=== PATIENT | female | born 1940 | race Caucasian/White ===

== ENCOUNTER 2016-12-27 01:57 | Inpatient (IN) ==
[2016-12-21 11:10] LABS: URINE MICRO REVIEW NEEDED? NO; URINE SOURCE CLEAN CATCH
[2016-12-21 11:10] LABS: MANUAL DIFF NEEDED? NO
[2016-12-21 11:14] LABS: BASO% 0.3 % (0.0-0.8); EOS# 0.12 X1000 (0.0-0.7); EOS% 1.8 % (0.0-10.0); HEMATOCRIT 43.7 % (37.0-47.0); LYMPH# 1.56 X1000 (1.2-3.4); LYMPH% 23.6 % (20.5-51.1); MCH 30.9 PG (27-31); MCHC 34.3 g/dL (33-37); MCV 90.1 FL (81-99); MONO# 0.49 X1000 (0.11-0.59); MONO% 7.4 % (1.7-9.3); MPV 9.3 FL (7.4-10.4); NEUT% 66.9 % (42.2-75.2); PLT 231 X1000 (130-400); RBC 4.85 XMIL (4.2-5.4)
[2016-12-21 11:18] LABS: BILIRUBIN URINE NEGATIVE (NEGATIVE); BLOOD URINE NEGATIVE (NEGATIVE); COLOR YELLOW; GLUCOSE URINE NEGATIVE (NEGATIVE); LEUKOCYTES URINE NEGATIVE (NEGATIVE); NITRITE URINE NEGATIVE (NEGATIVE); PH URINE 6.5; PROTEIN URINE NEGATIVE (NEGATIVE); SP GRAVITY URINE 1.016; TURBIDITY URINE CLEAR (CLEAR); UROBILINOGEN URINE NORMAL (NORMAL)
[2016-12-21 11:21] LABS: UR EPITHELIAL CELLS <10 /HPF (<10); URINE BACTERIA NEGATIVE /HPF; URINE RBC <10 /HPF (<10); URINE WBC <10 /HPF (<10)
[2016-12-21 11:28] LABS: INR 0.96; PROTIME 10.1 Seconds (9.2-11.7); PTT 26.2 Seconds (22.0-36.0)
[2016-12-21 11:41] LABS: AGAP 10; BUN 16 mg/dL (8-22); CALCIUM 9.4 mg/dL (8.8-10.2); CHLORIDE 103 mmol/L (98-107); COSMO 285; POTASSIUM 4.5 mmol/L (3.5-5.1); SODIUM 142 mmol/L (136-145); TCO2 29 mmol/L (25-35)
--- NOTE | 2016-12-21 11:51 | EKG Report ---
Test Performed on : 12/21/2016 10:24:56 AM Test Reason : ORDER Blood Pressure : / mmHG Vent. Rate : 066 BPM Atrial Rate : 066 BPM P-R Int : 140 ms QRS Dur : 074 ms QT Int : 426 ms P-R-T Axes : 064 022 057 degrees QTc Int : 446 ms Normal sinus rhythm. Normal ECG No previous ECGs available Confirmed by Robbin RODRIGUEZ, Esequiel Bhatt ([id number]) on 12/22/2016 11:55:22 AM
[2016-12-27] MEDS ORDERED: REGLAN ONE (08:03)
[2016-12-27] MEDS ORDERED: CELEBREX ONE (08:03)
[2016-12-27] MEDS ORDERED: LYRICA ONE (08:03)
[2016-12-27] MEDS ORDERED: KEFZOL 1 GM/D5W 1 GM/50 ML IVPB ONE (08:03)
[2016-12-27] MEDS ORDERED: COLACE ONE (08:03)
[2016-12-27] MEDS ORDERED: PEPCID ONE (08:03)
[2016-12-27] MEDS ORDERED: LR 1,000 ML ONE (08:04)
[2016-12-27] MEDS ORDERED: XYLOCAINE-MPF 2% ONE (09:35)
[2016-12-27] MEDS ORDERED: DIPRIVAN 1% ONE (09:35)
[2016-12-27] MEDS ORDERED: ROBINUL ONE (09:35)
[2016-12-27] MEDS ORDERED: VERSED ONE (09:36)
[2016-12-27] MEDS ORDERED: FENTANYL ONE (09:37)
[2016-12-27] MEDS ORDERED: DURAMORPH ONE (09:42)
[2016-12-27] MEDS ORDERED: MARCAINE 0.25% PF ONE (09:42)
[2016-12-27] MEDS ORDERED: TORADOL ONE (09:42)
[2016-12-27] MEDS ORDERED: NEOSPORIN G.U. IRRIGANT ONE (09:43)
[2016-12-27] MEDS ORDERED: VANCOMYCIN ONE (09:43)
[2016-12-27] MEDS ORDERED: CYKLOKAPRON 1,000 MG/NS 1,000 MG/100 ML IVPB ONE ×2 (09:43→09:44)
[2016-12-27] MEDS ORDERED: SODIUM CHLORIDE 0.9% ONE (09:43)
[2016-12-27] MEDS ORDERED: EXPAREL 1.3% ONE (09:43)
[2016-12-27] MEDS ORDERED: DECADRON ONE (10:30)
[2016-12-27] MEDS ORDERED: OFIRMEV 1000 MG/ISOTONIC SOLN 1,000 MG/100 ML BOTTLE ONE (10:30)
[2016-12-27] MEDS ORDERED: NEO-SYNEPHRINE ONE (10:47)
[2016-12-27 11:04] LABS: URINE MICRO REVIEW NEEDED? NO; URINE SOURCE CATH
[2016-12-27 11:10] LABS: BILIRUBIN URINE NEGATIVE (NEGATIVE); BLOOD URINE NEGATIVE (NEGATIVE); COLOR YELLOW; GLUCOSE URINE NEGATIVE (NEGATIVE); LEUKOCYTES URINE NEGATIVE (NEGATIVE); NITRITE URINE NEGATIVE (NEGATIVE); PH URINE 6.5; PROTEIN URINE NEGATIVE (NEGATIVE); TURBIDITY URINE CLEAR (CLEAR); UR EPITHELIAL CELLS <10 /HPF (<10); URINE BACTERIA NEGATIVE /HPF; URINE RBC <10 /HPF (<10); URINE WBC <10 /HPF (<10); UROBILINOGEN URINE NORMAL (NORMAL)
[2016-12-27] MEDS ORDERED: NS 1,000 ML ONE (12:38)
--- NOTE | 2016-12-27 12:44 | Diag Imaging Result Doc PS360 ---
KNEE 1-2 VIEWS-RIGHT - 12/27/2016 INDICATION: r tka TECHNIQUE: Two views COMPARISON: 09/20/2016 FINDINGS: There has been right total knee arthroplasty. There is also been patellar resurfacing. Alignment is anatomic. No hardware fracture or loosening. IMPRESSION: No complication. Electronically signed by Huey Alvarado 12/27/2016 12:41 PM
[2016-12-27] MEDS ORDERED: MORPHINE IV PRN (14:01)
[2016-12-27] MEDS ORDERED: MILK OF MAGNESIA PO PRN (14:01)
[2016-12-27] MEDS ORDERED: ZOFRAN PO PRN (14:01)
[2016-12-27] MEDS: ZOFRAN IV PRN (14:19)
[2016-12-27] MEDS: CALTRATE 600 + D PO SCH (14:20)
[2016-12-27] MEDS: VITAMIN B-12 PO SCH (14:20)
[2016-12-27] MEDS: PATIENT'S OWN MED PO SCH (14:20)
[2016-12-27] MEDS: VITAMIN B-1 PO SCH (14:20)
[2016-12-27] MEDS: ESTRACE PO SCH (14:20)
[2016-12-27] MEDS: NS 1,000 ML IV SCH (14:27)
[2016-12-27] MEDS: TYLENOL PO SCH (17:19)
[2016-12-27] MEDS ORDERED: KEFZOL 1 GM/D5W 1 GM/50 ML IVPB IV SCH (18:00)
[2016-12-27] MEDS ORDERED: KEFZOL 1 GM/D5W 1 GM/50 ML IVPB IV ONE (19:49)
[2016-12-27] MEDS: PERIDEX MT SCH (20:29)
[2016-12-27] MEDS: COLACE PO SCH (20:29)
[2016-12-27] MEDS: PRAVACHOL PO SCH (20:29)
[2016-12-28] MEDS: TYLENOL PO SCH ×5 (00:04→22:58)
[2016-12-28] MEDS: NS 1,000 ML IV SCH ×3 (00:05→15:44)
[2016-12-28] MEDS ORDERED: KEFZOL 2 GM/D5W 2 GM/50 ML IVPB IV ONE (04:00)
[2016-12-28 05:36] LABS: HEMOGLOBIN 12.2 g/dL (12.0-16.0)
[2016-12-28 05:48] LABS: AGAP 8; BUN 11 mg/dL (8-22); CHLORIDE 110 mmol/L (98-107); COSMO 287; POTASSIUM 4.1 mmol/L (3.5-5.1); SODIUM 143 mmol/L (136-145); TCO2 25 mmol/L (25-35)
[2016-12-28] MEDS: XARELTO PO SCH (05:58)
[2016-12-28] MEDS: CALTRATE 600 + D PO SCH (11:00)
[2016-12-28] MEDS: OXY IR PO PRN ×3 (11:01→19:01)
[2016-12-28] MEDS: PEPCID PO SCH (11:02)
[2016-12-28] MEDS: COLACE PO SCH ×2 (11:02→22:58)
[2016-12-28] MEDS: ESTRACE PO SCH (11:02)
[2016-12-28] MEDS: VITAMIN B-12 PO SCH (11:02)
[2016-12-28] MEDS: PATIENT'S OWN MED PO SCH (11:03)
[2016-12-28] MEDS: VITAMIN B-1 PO SCH (11:03)
[2016-12-28] MEDS: PERIDEX MT SCH ×2 (11:03→22:58)
[2016-12-28] MEDS: ZOFRAN IV PRN (22:58)
[2016-12-28] MEDS: PRAVACHOL PO SCH (22:58)
[2016-12-29] MEDS: OXY IR PO PRN ×5 (03:09→21:36)
[2016-12-29] MEDS: TYLENOL PO SCH ×3 (05:32→17:22)
[2016-12-29] MEDS: XARELTO PO SCH (05:32)
[2016-12-29 06:11] LABS: HEMATOCRIT 33.4 % (37.0-47.0); HEMOGLOBIN 11.4 g/dL (12.0-16.0)
[2016-12-29] MEDS: PEPCID PO SCH ×2 (07:57→11:26)
[2016-12-29] MEDS: COLACE PO SCH ×3 (07:58→21:36)
[2016-12-29] MEDS: VITAMIN B-1 PO SCH ×2 (07:58→11:26)
[2016-12-29] MEDS: PERIDEX MT SCH ×2 (07:59→21:37)
[2016-12-29] MEDS: VITAMIN B-12 PO SCH (07:59)
[2016-12-29] MEDS: ESTRACE PO SCH (07:59)
[2016-12-29] MEDS: CALTRATE 600 + D PO SCH (07:59)
[2016-12-29] MEDS: PATIENT'S OWN MED PO SCH (08:02)
--- NOTE | 2016-12-29 12:39 | Diag Imaging Result Doc PS360 ---
EXAM: CHEST-PORTABLE HISTORY: for rehab TECHNIQUE: Portable upright COMPARISON: 03/05/2015 FINDINGS: The lungs are well expanded. The heart is not enlarged. The vessels are not distended. No pneumonia. No pleural effusions identified. IMPRESSION: Negative chest. Electronically signed by Jerry Raza 12/29/2016 12:37 PM
[2016-12-29] MEDS: PRAVACHOL PO SCH (21:37)
[2016-12-30] MEDS: OXY IR PO PRN ×2 (01:53→08:40)
[2016-12-30 05:35] LABS: HEMATOCRIT 32.5 % (37.0-47.0)
[2016-12-30] MEDS: TYLENOL PO SCH (05:54)
[2016-12-30] MEDS: XARELTO PO SCH (05:55)
[2016-12-30 07:47] VITALS: BP 131/69
[2016-12-30] MEDS: VITAMIN B-12 PO SCH (08:41)
[2016-12-30] MEDS: ESTRACE PO SCH (08:41)
[2016-12-30] MEDS: CALTRATE 600 + D PO SCH (08:41)
[2016-12-30] MEDS: PEPCID PO SCH (08:41)
[2016-12-30] MEDS: VITAMIN B-1 PO SCH (08:41)
[2016-12-30] MEDS: PERIDEX MT SCH (08:41)
[2016-12-30] MEDS: COLACE PO SCH (08:41)
[2016-12-30] MEDS: PATIENT'S OWN MED PO SCH (08:42)
== END 2016-12-30 08:57 ==
LOC: SURHOLD 01:57 → 4N 10:41
PROVIDERS: ADMIT Orthopaedic Surgery Adult Reconstructive Orthopaedic Surgery; ATTEND Orthopaedic Surgery Adult Reconstructive Orthopaedic Surgery

== ENCOUNTER 2018-12-19 18:21 | Inpatient (IN) ==
--- NOTE | 2018-12-19 20:44 | Diag Imaging Result Doc PS360 ---
EXAM: CHEST-1 VIEW - 12/19/2018 HISTORY: sepsis protocol TECHNIQUE: One view chest COMPARISON: 12/29/2016 portable chest FINDINGS: Heart size is normal. The lungs appear clear. There is a tiny left pleural effusion. There is no pneumothorax identified. IMPRESSION: Tiny left pleural effusion. No evidence of pneumonia. Electronically signed by Demetrio Meier 12/19/2018 8:42 PM
--- NOTE | 2018-12-19 22:48 | PROVIDER DOCUMENTATION ---
HPI-General Adult - General Chief Complaint: Fever Stated Complaint: FEVER Time Seen by Provider: 12/19/18 22:24 Source: patient, family Allergies/Adverse Reactions: Patient Allergies Allergy/AdvReac Type Severity Reaction Status Date / Time ziprasidone HCl * AdvReac Unknown Verified 09/29/17 22:32 [From [facility]] ziprasidone mesylate * AdvReac Unknown Verified 09/29/17 22:32 [From [facility]] Home Medications: Home Medication List Medication Instructions Recorded Confirmed Last Taken Type Pravastatin Sodium 20 mg PO HS 09/20/16 09/29/17 09/28/17 22:00 History Calcium Carb, Citrate/Vit D3 1 each PO DAILY 12/21/16 09/29/17 09/29/17 08:00 History [Calcium + D3 ER Tablet] Cyanocobalamin [Vitamin B-12] 500 microgm PO DAILY 12/21/16 09/29/17 09/29/17 08:00 History Potassium Gluconate 99 mg PO DAILY 12/21/16 09/29/17 2 Days Ago History ~12/25/16 Thiamine HCl [Vitamin B-1] 250 mg PO DAILY 12/21/16 09/29/17 2 Days Ago History ~12/25/16 Docusate Sodium [Colace] 100 mg PO BID capsule 10/02/17 Unknown Rx Hydrocodone/Acetaminophen [[place] 10 mg PO BID PRN PRN 10/02/17 10/02/17 Unknown History 10-325 Tablet] Levofloxacin [Levaquin] 500 mg PO DAILY #15 tab 10/02/17 Unknown Rx - History of Present Illness -Gen Adult Nature of Presenting Problems: This is a 77yo female who presents with CC of fever and back pain. The patient reports that she has fever and muscle aches for the past 1 week. The patient reports that last week sunday she noted fever and chills and was treated at the office for muscle aches. On the patient continue to have fever and ach es and went to the urgent care and was given abx and steroids. She is not sure what the treatment was for, but was told that she did not have a UTI or the flu. The patient continued to have fevers and aches and came to the ED. The patient denies dysuria, hematuria, and chest pain. The patient denies any shortness of breath, no rash, no weakness, no speach issues, and no numbness. The patient denies abdominal pain or vomiting, but does report some nausea. The patient denies hx of blood clots, cancer, or recent travel. Location of Pain/Injury: reports: back Onset/Duration: reports: last week Timing: reports: still present, intermittent Context/Activities at Onset: denies: out of country travel Modifying Factors: improves with: other (some improvement with abx) Associated Symptoms: reports: back/neck pain, nausea, other (abdominal pain) Review of Systems - Adult - REVIEW OF SYSTEMS - ADULT Constitutional: reports: fever Eyes: denies: blurred vision Ears, Nose, Mouth & Throat: reports: no symptoms reported. denies: throat pain Cardiovascular: reports: no symptoms reported. denies: chest pain Respiratory: reports: no symptoms reported. denies: shortness of breath Gastrointestinal: reports: abdominal pain, nausea. denies: diarrhea, rectal bleeding, vomiting Genitourinary: reports: frequent UTI's. denies: dysuria, hematuria Musculoskeletal: reports: back pain Integumentary: reports: no symptoms reported. denies: rash Neurological: reports: no symptoms reported. denies: ataxia, heada julius/migraines, numbness Psychiatric: reports: no symptoms reported Endocrine: reports: no symptoms reported Hematologic/Lymphatic: reports: no symptoms reported, other (no bleeding) Allergic/Immunologic: reports: no symptoms reported Past History - Adult - PAST MEDICAL HISTORY-ADULT Review of Records: reports: Old Records Reviewed Major Childhood Illnesses: reports: denies history Cardiovascular: reports: hyperlipidemia Respiratory: reports: denies history Gastrointestinal: reports: denies history Obstetrical/Gynecological: reports: denies history Genitourinary: reports: denies history Musculoskeletal: reports: denies history Neurological: reports: denies history Psychiatric: reports: anxiety Endocrine/Immune: reports: denies history Other Conditions: reports: denies history - PRIOR SURGERIES/PROCEDURES Surgical/Procedure History: reports: hysterectomy, BTL - IMMUNIZATION STATUS Childhood Immunizations: See Nurse Assessment Flu Vaccine: See Nurse Assessment - FAMILY HISTORY Family History: cancer (lymphoma) - SOCIAL HISTORY Smoking: denies Substance Use: none/never Alcohol Use Frequency: never Physical Exam-General - PHYSICAL EXAM-ADULT Initial Vital Signs Reviewed: Yes - CONSTITUTIONAL General Appearance: appears well, alert, no apparent distress - EYES Eyes: PERRL/EOMI. negative: conjuctival exudate - HEAD, EARS, NOSE, MOUTH & THROAT HENMT: normocephalic/atraumatic, moist mucous membranes - NECK Neck: normal inspection - RESPIRATORY Respiratory: lungs clear, normal breath sounds - CARDIOVASCULAR Cardiovascular: regular rate, rhythm, no edema - GASTROINTESTINAL (ABDOMEN) Abdominal Exam: soft, tenderness (mild diffuse tenderness). 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 negative: motor weakness, sensory deficit - PSYCHIATRIC Psych/Mental Status: normal mood/affect, normal thought content, normal thought process Progress - PLAN OF CARE/RESULTS Progress/Plan/Lab Results: Vital Signs - 8 hr 12/19/18 18:33 Temperature 100.2 F H Pulse Rate 101 H Respiratory Rate 20 Blood Pressure 139/82 O2 Sat by Pulse Oximetry 96 12/19/18 18:38 Influenza Screen - Final Nasopharyngeal Orders Category Date Time Status Cardiac Monitoring DIRECTED Care 12/19/18 19:15 Active IV Insertion ORDERED Care 12/19/18 19:15 Active Notify MD of + Sepsis Screen NOW Care 12/19/18 19:15 Active CHEST-1 VIEW [RAD] Stat Exams 12/19/18 19:15 Completed BLOOD CULTURE [BLDCUL] Stat Lab 12/19/18 19:15 Uncollected CBC WITH DIFF [HEME] Stat Lab 12/19/18 19:15 Uncollected CBC WITH DIFF [HEME] Stat Lab 12/19/18 22:46 Uncollected CK PROFILE [SP CHEM] Stat Lab 12/19/18 19:15 Uncollected COMPREHENSIVE METABOLIC PANEL [CHEM] Stat Lab 12/19/18 19:15 Uncollected CRP HIGH SENSITIVITY Stat Lab 12/19/18 22:46 Ordered INFLUENZA SCREEN A/B Stat Lab 12/19/18 18:38 Completed LACTATE, PLASMA [CHEM] Q3H Lab 12/19/18 19:15 Uncollected LACTATE, PLASMA [CHEM] Q3H Lab 12/19/18 22:15 Uncollected LACTATE, PLASMA [CHEM] Q3H Lab 12/20/18 01:15 Uncollected PROTIME WITH INR [COAG] Stat Lab 12/19/18 19:15 Uncollected PTT [COAG] Stat Lab 12/19/18 19:15 Uncollected SED RATE [HEME] Stat Lab 12/19/18 22:46 Uncollected TROPONIN T Stat Lab 12/19/18 19:15 Uncollected TROPONIN T Stat Lab 12/19/18 22:46 Uncollected URINALYSIS W/POSS RFLX CULT [URINALYSIS] Stat Lab 12/19/18 19:15 Uncollected Oxygen Device Stat Oth 12/19/18 19:15 Completed EKG [EKG] Stat Ther 12/19/18 22:46 Ordered Result Diagrams: 12/19/18 23:10 12/19/18 23:10 - REASSESSMENT Reassessment #1 Status: other (Given persistant low back pain with fever, tachycardia, as well as elvated CRP and ESR and d-dimer, discussed case with hospitalist team who will plan to admit. CTA Pulmonary arteries as well as CT abd/pelvis pending.) Departure - Departure Date of Disposition Decision: 12/20/18 Time of Disposition Decision: 01:42 DIAGNOSIS: Tachycardia Fever Qualifiers: Fever type: unspecified Qualified Code(s): R50.9 - Fever, unspecified Back pain Qualifiers: Back pain location: low back pain Chronicity: acute Back pain laterality: left Sciatica presence: unspecified whether sciatica present Qualified Code(s): M54.5 - Low back pain Disposition: ADMITTED INPATIENT 09 Certified Medical Emergency: Emergent Condition: Serious Referrals and Follow-Ups: Juan Nugent [Primary Care Provider] - - Critical Care Note This patient required my direct & personal management of CC.: No Attestation - Physician/ JANET Attestation Patient care was provided by Advanced Practice Provider:: No The physician spent face to face time with patient:: Yes Advanced Practice Provider documentation review:: Supervising physician onsite and consulted in the evaluation and care of this patient. The physician did have a face to face encounter with the patient.
[2018-12-19 23:29] LABS: URINE SOURCE CLEAN CATCH
[2018-12-19 23:34] LABS: BASO# 0.02 X1000 (0.0-0.2); BASO% 0.3 % (0.0-0.8); EOS# 0.06 X1000 (0.0-0.7); EOS% 0.8 % (0.0-10.0); HEMOGLOBIN 14.3 g/dL (12.0-16.0); IMM GRAN# 0.04 X1000 (0.0-0.04); IMM GRAN% 0.5 % (0.0-0.5); LYMPH# 1.54 X1000 (1.2-3.4); LYMPH% 20.8 % (20.5-51.1); MCH 29.8 PG (27-31); MCHC 33.3 g/dL (33-37); MCV 89.6 FL (81-99); MONO# 0.89 X1000 (0.11-0.59); MPV 8.6 FL (7.4-10.4); NEUT# 4.86 X1000 (1.4-6.5); NEUT% 65.6 % (42.2-75.2); PLT 301 X1000 (130-400); RDW 12.2 % (11.5-14.5); WBC 7.41 X1000 (4.8-10.8)
[2018-12-19 23:35] LABS: BILIRUBIN URINE NEGATIVE (NEGATIVE); BLOOD URINE NEGATIVE (NEGATIVE); COLOR YELLOW; GLUCOSE URINE NEGATIVE (NEGATIVE); KETONE URINE NEGATIVE (NEGATIVE); LEUKOCYTES URINE NEGATIVE (NEGATIVE); NITRITE URINE NEGATIVE (NEGATIVE); PH URINE 6.5; PROTEIN URINE NEGATIVE (NEGATIVE); SP GRAVITY URINE 1.014; TURBIDITY URINE CLEAR (CLEAR); UR EPITHELIAL CELLS <10 /HPF (<10); URINE BACTERIA NEGATIVE /HPF; URINE RBC <10 /HPF (<10); URINE WBC <10 /HPF (<10); UROBILINOGEN URINE NORMAL (NORMAL)
[2018-12-19 23:41] LABS: INR 1.12; PROTIME 14.5 Seconds (11.0-16.0)
[2018-12-19 23:42] LABS: PTT 30.9 Seconds (22.3-41.8)
[2018-12-19 23:51] LABS: AGAP 14; ALB/GLOB RATIO 1.1; ALBUMIN 4.2 g/dL (3.5-5.0); ALKALINE PHOSPHATASE 102 U/L (32-104); BUN 15 mg/dL (8-22); CALCIUM 9.3 mg/dL (8.8-10.2); CHLORIDE 100 mmol/L (98-107); CK PROFILE 31 U/L (24-173); COSMO 278; CREATININE 0.8 mg/dL (0.5-0.9); ESTIMATED GFR > 60; GLUCOSE 119 mg/dL (70-104); GOT 13 U/L (10-30); GPT 13 U/L (10-36); POTASSIUM 3.9 mmol/L (3.5-5.1); SODIUM 138 mmol/L (136-145); TCO2 24 mmol/L (25-35); TOTAL BILIRUBIN 0.78 mg/dL (0.20-1.00); TOTAL PROTEIN 8.1 g/dL (6.3-8.3)
[2018-12-20 00:46] LABS: SED RATE 42 mm/hr (0-20)
[2018-12-20] MEDS ORDERED: TORADOL IV ONE ×2 (01:29→11:26)
[2018-12-20] MEDS ORDERED: NS 1,000 ML IV ONE (01:39)
[2018-12-20] MEDS ORDERED: LIDODERM TOP ONE (03:09)
[2018-12-20] MEDS ORDERED: TYLENOL PO PRN (04:05)
--- NOTE | 2018-12-20 04:30 | EKG Report ---
Test Performed on : 12/20/2018 03:45:06 AM Test Reason : Fever and back pain Blood Pressure : / mmHG Vent. Rate : 074 BPM Atrial Rate : 074 BPM P-R Int : 140 ms QRS Dur : 074 ms QT Int : 396 ms P-R-T Axes : 061 037 060 degrees QTc Int : 439 ms Normal sinus rhythm. Normal ECG When compared with ECG of 21-DEC-2016 10:24, No significant change was found Unconfirmed Result
--- NOTE | 2018-12-20 06:28 | HISTORY AND PHYSICAL ---
CHIEF COMPLAINT: Fever with failed outpatient therapy. HISTORY OF PRESENT ILLNESS: Ms Tejada is a 77-year-old lady with past medical history of hyperlipidemia, who comes into the emergency room for chief complaints of fever as high as 101 degrees Fahrenheit since last 1 week. The patient has been in her usual state of health until about 1 week ago when she had started developing fever episode intermittently with temperature between 100 to 101 degrees. Associated with that, she had occasional chills. With these complaints, she went to [facility] and she was given intramuscular antibiotic, oral levofloxacin and steroid dose and was sent to her home. However, she has been taking levofloxacin but her fever episode has not resolved. She was told at [facility] that she did not have flu and she did not have a urine infection. However, source of fever was not conveyed to her. Since the last 1 week, she has also been experiencing lower back pain which has not been improving with the use of ibuprofen. Apparently, she has had back pain since 2 years when she had a knee replacement surgery on the right knee. However, the initial back pain episode used to get better with ibuprofen. However, since last 1 week, they are getting worse. She denies any bowel or urinary incontinence, any tingling or numbness of her legs. She denies any chest pain, shortness of breath, cough, nausea, vomiting, abdominal pain, urinary burning, any diarrhea, constipation, or sick contacts. She denies any recent joint site injection or any procedure. REVIEW OF SYSTEMS: Positive for low back pain. Negative for headache. Negative for rigors. Negative for cough. PAST MEDICAL HISTORY: Hyperlipidemia. PAST SURGICAL HISTORY: 1. Right knee replacement. 2. Hysterectomy. SOCIAL HISTORY: No history of cigarette smoking, alcohol or drug use. ALLERGIES: Ziprasidone. HOME MEDICATIONS: At home she is listed to be taking calcium carbonate-vitamin D3 1 tablet daily, [place] 10 mg b.i.d. as needed, potassium 99 mg daily, pravastatin 20 mg at nighttime, thiamine 200 mg daily, cyanocobalamin 500 mcg daily, docusate 100 mg b.i.d., currently levofloxacin 500 mg daily, however, the medication reconciliation proper is pending. FAMILY HISTORY: Noncontributory. PHYSICAL EXAMINATION: VITAL SIGNS: Currently, temperature of 100.2 degrees, pulse 101, respiratory rate 20, blood pressure 140/82, saturating 96% on room air. GENERAL: Does not appear in any acute distress. HEENT: Oral cavity is moist. LUNGS: Air entry bilaterally equal. No wheeze, rhonchi, or crackles. CARDIOVASCULAR: S1, S2 normal. No murmur, rub, or gallop. ABDOMEN: Soft, nontender. EXTREMITY: No lower extremities edema. NEUROLOGIC: She is alert and oriented x3. BACK: She does have mild tenderness in bilateral sacral iliac joint and lower lumbar spinal vertebrae. Straight leg raising test is negative. Her sensation is intact bilaterally. LABORATORY DATA: Suggestive of no leukocytosis, normal hemoglobin, normal platelet count, elevated D-dimer, normal kidney function. MICROBIOLOGY: Blood cultures are in lab. Influenza screen was negative. IMAGING: Abdomen, pelvis and chest CT read is pending. Chest x-ray had a tiny left pleural effusion without any evidence of pneumonia. ASSESSMENT AND PLAN: 1. Suspected sepsis considering fever and tachycardia, of unclear etiology. 2. Suspected deep venous thrombosis or embolism considering elevated D-dimer, prior history of knee replacement though currently she has good functional status. 3. Bilateral sacroiliac joint and lower lumbar pain 3. History of hyperlipidemia. PLAN: At the moment, the source of presumed sepsis is unclear. She does have tenderness in lower lumbar spinal vertebrae and bilateral sacroiliac joint. I will see what the CT scan of abdomen and pelvis suggests to make sure she does not have osteomyelitis. However, the source of this needs to be investigated. Large clot burden with DVT, PE could also contribute to tachycardia and fever, and I will await CT scan angiogram. Based on that, I may order ultrasound of the lower extremities. Meanwhile, I will keep her on enoxaparin prophylactic dose. She has been on oral levofloxacin and it may make cultures not grow anything. However, I am holding antibiotic to see progression of her symptoms. Based on that, I may add/ broaden the antibiotic coverage. Plan of care discussed with the patient and her daughter at bedside. Their questions have been answered. cc: Steve Nicole MD [facility] CENTERSanjeev
--- NOTE | 2018-12-20 06:36 | Diag Imaging Result Doc PS360 ---
CT ABD/PELVIS/PULM ARTERIES - 12/20/2018 INDICATION: Fever, elevated D-dimer, back and abdominal pain TECHNIQUE: Axial CT images were obtained after administering intravenous contrast. Coronal MIP images were generated. COMPARISON: 09/29/2017 FINDINGS: CHEST: There is no pulmonary embolism. Heart and great vessels are normal. The lungs are clear. The bones are intact. Abdomen pelvis: There is a small sliding hiatal hernia. The liver, gallbladder, spleen, pancreas, adrenals, and kidneys are normal. There are a couple loops of mildly dilated small bowel in the left lower quadrant, but these only measure 3 cm. No inflammatory changes. Normal appendix. Severe diverticulosis throughout the sigmoid colon. Uterus is absent. Urinary bladder and rectum are normal. There are moderate degenerative changes of the spine. No acute or suspicious bony lesion. IMPRESSION: 1. Negative chest. 2. Some minimally dilated small bowel in the left lower quadrant that is nonspecific. 3. Diverticulosis coli. Hiatal hernia. This exam was performed using automated exposure control, adjustment of mA or kV according to patient size, and/or use of iterative reconstruction technique Electronically signed by Huey Alvarado 12/20/2018 6:34 AM
[2018-12-20] MEDS: LOVENOX SUBQ SCH (06:38)
[2018-12-20] MEDS: VITAMIN B-1 PO SCH (09:37)
[2018-12-20] MEDS: COLACE PO SCH ×2 (09:38→20:45)
[2018-12-20] MEDS: CALTRATE 600 + D PO SCH (09:38)
[2018-12-20] MEDS: VITAMIN B-12 PO SCH (09:38)
[2018-12-20] MEDS ORDERED: TORADOL IV PRN (11:59)
--- NOTE | 2018-12-20 15:28 | PROGRESS NOTE ---
DATE: 12/20/2018 SUBJECTIVE: No acute events overnight. She has been complaining of lower back pain. She had an episode of low-grade fever yesterday in the afternoon at 100.2, and she was slightly tachycardic at 101 at the same time, but after that, no more tachycardia. No more fever. As per the patient, she has been having fever for at least 1 week between 100 to 101 degrees. She actually visited her doctor and she was given some antibiotics and steroids, but she is still having fever. Physical exam did not show any abnormality. Chest x-ray showed a tiny left pleural effusion, but no evidence of pneumonia. This is the report of the radiologist, but I do not see the effusion either. CT scan of the chest, abdomen and pelvis was done yesterday and did not show any pulmonary embolism, negative chest, some minimally dilated small bowel in the left lower quadrant that is nonspecific, diverticulosis and hiatal hernia. She is not complaining of chest pain. She is not complaining of photophobia or neck pain. She is not complaining of cough, abdominal pain, diarrhea, nausea, vomiting, constipation, or skin problems. OBJECTIVE: Vital Signs: Temperature 98.9 degrees, pulse 77, respiratory rate 18, blood pressure 117/59, oxygen saturation 97% on room air. HEENT: Head normocephalic. No trauma. PERRLA. Neck: Supple. No JVD. No masses. Central trachea. Chest: Clear to auscultation. No wheezing. No rales. Abdomen: Soft, nontender, nondistended. No hepatosplenomegaly. Extremities: No edema, no clubbing, no cyanosis. Neurological: The patient is alert. She is oriented x3. She is able to move all 4 extremities. No focal weakness. No photophobia. LABORATORY DATA: I will repeat the CBC and CMP tomorrow, but WBC was 7.4, hemoglobin 14.3, hematocrit 43, and platelet count 301,000. A slightly elevated ESR at 42 and slightly elevated D- dimer at 1.1. Sodium 138, potassium 3.9, chloride 100, bicarbonate 24, BUN 15, creatinine 0.8, glucose 119, calcium 9.3. CK 31. Troponin negative. CRP is high at 13,580, but I do not have any source of infection. ASSESSMENT AND PLAN: 1. Febrile illness for at least 1 week on and off. I do not have any source of infection. ESR and C-reactive protein are elevated but CT scans are negative. She does not have any signs or symptoms of meningitis, no photophobia, no skin problems, no diarrhea, no chest pain or shortness of breath. Chest x-ray negative. We will monitor for now and if she is still having fever during the weekend, likely I will get the Infectious Disease doctor to evaluate this patient. 2. History of hyperlipidemia, aware. 3. Elevated D-dimer with negative CT angiogram of the chest. I will check a lower extremity ultrasound to rule out deep venous thrombosis. 4. Hyperglycemia. I will check a hemoglobin A1c, but she does not have a history of diabetes. I will also check TSH tomorrow. cc: Dave Lopez MD
[2018-12-20] MEDS: PRAVACHOL PO SCH (20:46)
--- NOTE | 2018-12-20 22:09 | Extremity Venous Study ---
PROCEDURE NAME: Venous U/S Bilateral Legs - 12/20/2018 CARPENTRY TEACHER: Satya. REQUESTING PHYSICIAN: Dr. Perry. INDICATIONS: Edema in leg and elevated D-dimer. FINDINGS: The deep and superficial veins of bilateral lower extremities visualized along their course. All vessels appear compressible with forward flow. No evidence intraluminal thrombus. There was reflux on the right common femoral greater saphenous vein. SUMMARY: No deep or superficial venous thrombosis seen in bilateral lower extremities. cc: MD Dave Riley MD
[2018-12-21] MEDS: LOVENOX SUBQ SCH (06:25)
[2018-12-21] MEDS: PRILOSEC PO SCH (06:25)
[2018-12-21 07:51] LABS: BASO# 0.01 X1000 (0.0-0.2); BASO% 0.2 % (0.0-0.8); EOS# 0.08 X1000 (0.0-0.7); EOS% 1.9 % (0.0-10.0); HEMOGLOBIN 13.3 g/dL (12.0-16.0); LYMPH% 30.8 % (20.5-51.1); MCH 29.7 PG (27-31); MCHC 33.3 g/dL (33-37); MCV 89.3 FL (81-99); MONO# 0.44 X1000 (0.11-0.59); MONO% 10.4 % (1.7-9.3); MPV 8.8 FL (7.4-10.4); NEUT# 2.39 X1000 (1.4-6.5); NEUT% 56.7 % (42.2-75.2); PLT 214 X1000 (130-400); RBC 4.48 XMIL (4.2-5.4); RDW 12.1 % (11.5-14.5); WBC 4.22 X1000 (4.8-10.8)
[2018-12-21 08:05] LABS: HEMOGLOBIN A1C 5.3 % (4.8-6.0)
[2018-12-21 08:39] LABS: AGAP 12; ALB/GLOB RATIO 1.1; ALBUMIN 3.1 g/dL (3.5-5.0); ALKALINE PHOSPHATASE 72 U/L (32-104); BUN 13 mg/dL (8-22); CALCIUM 8.9 mg/dL (8.8-10.2); CHLORIDE 103 mmol/L (98-107); COSMO 280; CREATININE 0.7 mg/dL (0.5-0.9); ESTIMATED GFR > 60; GLUCOSE 102 mg/dL (70-104); GOT 11 U/L (10-30); GPT 10 U/L (10-36); POTASSIUM 3.8 mmol/L (3.5-5.1); SODIUM 140 mmol/L (136-145); TCO2 25 mmol/L (25-35); TOTAL BILIRUBIN 0.52 mg/dL (0.20-1.00)
[2018-12-21] MEDS: CALTRATE 600 + D PO SCH (09:23)
[2018-12-21] MEDS: VITAMIN B-1 PO SCH (09:23)
[2018-12-21] MEDS: COLACE PO SCH ×2 (09:23→21:03)
[2018-12-21] MEDS: VITAMIN B-12 PO SCH (09:23)
--- NOTE | 2018-12-21 14:21 | PROGRESS NOTE ---
DATE: 12/21/2018 SUBJECTIVE: No acute events overnight. She had a very mild increase of temperature at 99.8 degrees yesterday night, but no fever, no chills. Blood culture has been negative so far, including blood culture and urine culture. She is not having cough, diarrhea, abdominal pain or dysuria. For now, we will monitor. Lower extremity ultrasound did not show any DVT. OBJECTIVE: Vital Signs: Temperature 98.2 degrees, pulse 68, respiratory rate 16, blood pressure 98/60, oxygen saturation 98 on room air. HEENT: Head normocephalic, no trauma. PERRLA. Neck: Supple. No JVD. No masses. Central trachea. Chest: Clear to auscultation. No wheezing. No rales. Abdomen: Soft, nontender, nondistended. No hepatosplenomegaly. Extremities: No edema, no clubbing, no cyanosis. Neurological examination: The patient is alert and oriented x3. No focal deficits. LABORATORY: WBC 4.2, hemoglobin 13.3, hematocrit 40, platelets 214. Sodium 140, potassium 3.8, chloride 103, bicarbonate 25. BUN 13, creatinine 0.7, glucose 102, calcium 8.9. ASSESSMENT AND PLAN: 1. Febrile illness for at least 1 or 2 weeks on and off. I do not have any source of infection. ESR and C-reactive protein are elevated, but CT scan is negative, as well as the cultures. She does not have any signs or symptoms of any neurological problems. She is awake, alert. She is oriented times 3. I will monitor this patient for 1 more day, and hopefully tomorrow will discharge her home if she is not having more fever. 2. History of hyperlipidemia. Aware. 3. Elevated D-dimer with negative CT angiogram of the chest, and negative lower extremity ultrasound. 4. Hyperglycemia. I checked her hemoglobin A1c which is 5.3. Blood sugar within normal limits now. Thyroid stimulating hormone normal as well. cc: Dave Lopez MD
[2018-12-21] MEDS: PRAVACHOL PO SCH (21:03)
[2018-12-22] MEDS: PRILOSEC PO SCH (06:16)
[2018-12-22] MEDS: LOVENOX SUBQ SCH (06:16)
[2018-12-22 07:58] LABS: BASO# 0.01 X1000 (0.0-0.2); BASO% 0.2 % (0.0-0.8); EOS# 0.13 X1000 (0.0-0.7); EOS% 2.3 % (0.0-10.0); HEMATOCRIT 36.5 % (37.0-47.0); LYMPH% 24.9 % (20.5-51.1); MCH 29.6 PG (27-31); MCHC 32.9 g/dL (33-37); MCV 89.9 FL (81-99); MONO# 0.69 X1000 (0.11-0.59); MONO% 12.3 % (1.7-9.3); MPV 8.8 FL (7.4-10.4); NEUT# 3.39 X1000 (1.4-6.5); NEUT% 60.3 % (42.2-75.2); PLT 255 X1000 (130-400); RBC 4.06 XMIL (4.2-5.4); RDW 11.9 % (11.5-14.5); WBC 5.62 X1000 (4.8-10.8)
[2018-12-22 08:18] LABS: AGAP 9; BUN 13 mg/dL (8-22); CALCIUM 8.8 mg/dL (8.8-10.2); CHLORIDE 103 mmol/L (98-107); COSMO 277; CREATININE 0.6 mg/dL (0.5-0.9); ESTIMATED GFR > 60; GLUCOSE 89 mg/dL (70-104); POTASSIUM 3.9 mmol/L (3.5-5.1); SODIUM 139 mmol/L (136-145); TCO2 27 mmol/L (25-35)
[2018-12-22 08:30] VITALS: BP 122/68
[2018-12-22] MEDS: VITAMIN B-1 PO SCH (10:02)
[2018-12-22] MEDS: VITAMIN B-12 PO SCH (10:03)
[2018-12-22] MEDS: CALTRATE 600 + D PO SCH (10:03)
[2018-12-22] MEDS: COLACE PO SCH (10:04)
--- NOTE | 2018-12-22 14:17 | DISCHARGE SUMMARY ---
ADMISSION DATE: 12/20/2018 DISCHARGE DATE: 12/22/2018 DIAGNOSES: 1. Febrile illness for at least 1 to 2 weeks. 2. History of hyperlipidemia. 3. Elevated D-dimer with negative CTA of the chest and negative lower extremity Doppler. 4. Hyperglycemia with a hemoglobin A1c of 5.3. DIAGNOSTICS: 1. Chest x-ray revealed tiny left pleural effusion. No evidence of pneumonia. 2. CT of the abdomen and pelvis and pulmonary arteries revealed negative chest, some minimally dilated small bowel in the lower quadrant that is nonspecific, diverticulosis coli and hiatal hernia. 3. Bilateral lower extremity Doppler revealed no deep or superficial venous thrombosis in either bilateral lower extremities . 4. Blood cultures x2 revealed no growth after 48 hours. 5. Influenza A and B negative. 6. Urine culture revealed no pathogenic growth. HOSPITAL COURSE: Ms Tejada presented to the emergency room complaining of fever as high as 101 intermittently over the prior week or so with occasional chills. She had no other symptoms. She was evaluated at an outpatient clinic, given IM antibiotic, Levaquin and steroids and discharged home. As this is not resolve she presented to the emergency room for further evaluation. CT scan was negative. Cultures were negative. Skin inspection was negative. White blood cell count ranged from 4.2 to 7.41, T-max has been 100.2 on admission. Today she has no complaints. She states that she is feeling better and thankfully she is ready to be discharged. DISCHARGE PHYSICAL EXAM: Vital Signs: Blood pressure is 122/60 with heart rate of 69, respirations 18, temperature is 98.6 degrees oral with room air saturations 96-98%. Cardiovascular: Regular rate and rhythm. S1 and S2 appreciated. She has no lower extremity edema. Calves are nontender bilateral with peripheral pulses palpable x4 extremities. Pulmonary: Breath sounds are clear with no increased work of breathing noted. Chest rise and fall symmetric respiration. Chest wall is nontender to palpation. Gastrointestinal: Soft, nontender, nondistended. Bowel sounds in all 4 quadrants. : No CVA or suprapubic tenderness. Neurologic: She is alert and oriented x3. Skin is warm and dry with no rashes or lesions noted. DISCHARGE MEDICATIONS: 1. Vitamin B1 250 mg p.o. daily. 2. Pravastatin 20 mg p.o. at bedtime. 3. Entriken 10/325 1 p.o. b.i.d. p.r.n. 4. Colace 100 mg p.o. b.i.d. 5. Vitamin B12 500 mcg p.o. daily. 6. Calcium and vitamin D3 1 p.o. daily. 7. Tylenol 650 q.6 hours p.r.n. FOLLOWUP: Dr. Juan Nugent, her primary care physician. She needs to call in the morning schedule appointment to be seen within the next week. She needs to call to be seen sooner return to the ER for any syncope, dizziness, chest pain, palpitations, temperature greater than 101, a productive cough, any nausea, vomiting, diarrhea, constipation, black or bloody vomitus or stools, any hematuria, dysuria, frequency, urgency or for any questions or concerns that she may have. She being discharged home in stable condition with family members. TIME SPENT: Greater than 30 minutes. Dictated by RAMON Morelos for Dave Lopez MD cc: MD Dave Keller MD
== END 2018-12-22 10:56 | disposition home or self-care (01) | DRG 864 ==
LOC: ED 18:21 → SUATTDRO 12-20 04:20 → 4N 12-20 04:20
PROVIDERS: ATTEND Internal Medicine